=== PATIENT | female | born 1930 | race Caucasian/White ===

== ENCOUNTER → 2016-12-19 08:32 | Outpatient (CLI) | payer MEDICARE, OTHER | END | disposition home or self-care (01) | LOC: D.MRI 12-15 10:30 | DX: M54.2 Cervicalgia (principal) ==

== ENCOUNTER → 2018-03-05 09:58 | Outpatient (CLI) | payer MEDICARE, OTHER | END | disposition home or self-care (01) | LOC: D.CT 09:58 | DX: R79.1 Abnormal coagulation profile (principal) ==

== ENCOUNTER 2018-04-06 14:20 | Inpatient (IN) | payer MEDICARE, OTHER ==
[~2018-04-06] VITALS: Ht 157.5 cm; Wt 81.8 kg
--- NOTE | ~2018-04-06 | MORECARE ---
CASE MANAGEMENT DISCHARGE SUMMARY PATIENT: GRIFFIN BEGUM UNIT: [id number] ADM DATE: 04/06/18 AGE: 87 : 30 SEX: F ROOM/BED: D.2239 AUTHOR: ESAU GAN PHYSICIAN: REFERRING PHYSICIAN: SANJEEV PHILLIPS DO DATE OF SERVICE: 04/09/18 Discharge Plan Patient Name: GRIFFIN BEGUM Facility: [facility]:[place] : 1930 Planned Disposition: Home Anticipated Discharge Date: Discharge Date: Expected LOS: Initial Reviewer: [email or web address] Initial Review Date: 04/09/2018 Generated: 04/09/18 12:06 pm Comments DCP- Discharge Planning Updated by [email or web address]: Penny Byrd on 04/09/18 9:[address] Patient Name: GRIFFIN BEGUM Admission Status: ER Accout number: [id number] Admission Date: 04-06-2018 : 1930 Admission Diagnosis:PNEUMONIA, UNSPECIFIED ORGANISM Attending: SANJEEV PHILLIPS Current LOS: 3 Anticipated DC Date: Planned Disposition: Home Primary Insurance: MEDICARE A & B Discharge Planning Comments: CM met with patient and her to discuss discharge planning. She and her live in [facility] She uses a cane for ambulation, otherwise is independent with ADL's. She no longer drives, her drives her where she needs to go. She states that [facility] prepares their meals and cleans the house weekly. She states she does have a emergency bracelet that rings the front desk coordinator when help is needed. She has a golf cart that she drives to the main building for her meals. She believes her oxygen supplier is [employer], she only uses it PRN. I discussed availability of rehab, SNF, home health and additional DME. At this time, she declines needs. States she is unsure if she will need anything at this time. CM will continue to follow and assist with discharge planning/needs. Financial Cost Analyst: Penny Byrd DCPIA - Discharge Planning Initial Assessment Updated by [email or web address]: Penny Byrd on 04/09/18 10:53 am * Is the patient Alert and Oriented? Yes * How many steps to enter\exit or inside your home? 0/0 * PCP Dr. Phillips * Pharmacy [facility] * Preadmission Environment Home with Family * ADLs Partial Dependent * Partial ADLs (Assistance needed) Ambulation * Equipment Cane Grab Bars Other Oxygen Rolling Walker * Other Equipment Emergency Bracelet Portable oxygen * List name and contact numbers for known caregivers / representatives who currently or will assist patient after discharge: Gregory banda - [phone] Aren rojo - [phone] * Verbal permission to speak to the caregivers and representatives has been obtained from the patient. Yes * Community resources currently utilized None * Additional services required to return to the preadmission environment? No * Can the patient safely return to the preadmission environment? Yes * Has this patient been hospitalized within the prior 30 days at any hospital? 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
--- NOTE | ~2018-04-06 | HEMODYNAMI ---
PATIENT:GRIFFIN BEGUM MEDICAL RECORD: [id number] : 30 [facility] [id number] ADMISSION DATE: 04/06/18 Generatedon:04/11/201812:42 Patient name: GRIFFIN BEGUM Patient #: [id number] SSN : : 1930 Date of study: 04/11/2018 Page: Of Hemodynamic Procedure Report Patient Data Patient Demographics Procedure consent was obtained First Name: GRIFFIN Gender: Female Last Name: SHY : 1930 [facility] Initial: P Age: 87 year(s) Patient #: [id number] Race: Unknown Additional ID: [id number] Contact details Address: [address] [place] [address] State: [place] City: [facility] Zip code: [address] Past Medical History Allergies: No known allergies Admission Admission Data Admission Date: 04/06/2018 Admission Time: 17:19 Room #: [facility] Procedure Procedure Types Cath Procedure Diagnostic Procedure LHC LHC w/Coronaries w/Grafts FFR/IVUS Intra-Coronary IVUS Initial Sedation Charges Moderate Sedation up to 30 minutes PCI Procedure Coronary Stent Coronary Stent Initial AMI/SVG/PRE KINDERGARTEN TEACHER PTCA or Stent SVG-BMS/DESIREE Initial Peripheral Cath Diagnostic Procedure Direct Of Real Estate Peripheral Procedures Ubulf-Rnfvsak-Ead-Off Procedure Description Procedure Date Procedure Date: 04/11/2018 Procedure Start Time: 12:05 Procedure End Time: 12:39 Procedure Staff Name Function Adeola Jolly RT Monitor Cuate Car RN Slitting Machine Feeder Waldemar Gil MD Performing Physician Lakshmi Hernandez RT Scrub Mami Painting RN Nurse Procedure Data Cath Procedure Fluoroscopy Diagnostic fluoroscopy Total fluoroscopy Time: 0 time: 0 min min Diagnostic fluoroscopy Total fluoroscopy dose: 9.8 dose: 9.8 mGy mGy Contrast Material Contrast Material Type Amount (ml) Isovue 300 190 Entry Location Entry Primary Successful Side Size Upsize Upsize Entry Closure Succes sful Closure Location (Fr) 1 (Fr) 2 (Fr) Remarks Device Remarks Femoral Right 5 Fr 6 Fr 7 Fr Exoseal artery Short Short Estimated blood loss: 10 ml Diagnostic catheters Device Type Used For End Catheter Placement MULTIPACK 3DRC 5Fr Internal mammary catheter arteriography MULTIPACK 3DRC 5Fr Right Coronary catheter Angiography MULTIPACK 3DRC 5Fr SVG Angiography catheter MULTIPACK Pigtail 5 Fr LV Angiography catheter MULTIPACK Pigtail 5 Fr Abdominal catheter aortogram with runoff MULTIPACK JL 4.0 5Fr Left Coronary catheter Angiography DIAGNOSTIC AR2 MOD 5 Fr SVG Angiography catheter ([id number]) DIAGNOSTIC AR2 MOD 5 Fr SVG Angiography catheter ([id number]) Procedure Complications No complications Procedure Medications Medication Administration Route Dosage 0.9% NaCl I.V. 100 ml/hr Oxygen etCO2 Nasal cannula 2 l/min Lidocaine 2% added to field 20 Heparin Flush Bag added to field 2 bags (1000units/500ml NS) Versed I.V. 2 mg Fentanyl I.V. 50 mcg Versed I.V. 1 mg Heparin Bolus I.V. 4000 units Integrilin (Bolus I.V. 7.3 ml 2mg/ml) Versed I.V. 1 mg Fentanyl I.V. 50 mcg Plavix P.O. 600 mg Hemodynamics Rest Heart Rate: 95 (bpm) Snapshots Pre Cath Intra NCS Post Cath Vital Signs Time Heart Resp SPO2 etCO2 NIBP (mmHg) Rhythm Pain Sedation Rate (ipm) (%) (mmHg) Status Level (bpm) 11:51:47 96 24 100 27.5 145/84(114) NSR 0 (11) 10(A) , No pain 11:56:15 99 29 100 24.5 147/92(111) NSR 0 (11) 10(A) , No pain 12:00:46 94 27 100 27.5 148/84(116) NSR 0 (11) 10(A) , No pain 12:05:16 90 25 100 24.5 135/77(110) NSR 0 (11) 10(A) , No pain 12:09:43 88 23 99 26.8 123/73(106) NSR 0 (11) 10(A) , No pain 12:14:05 90 24 100 28.2 126/71(96) NSR 0 (11) 10(A) , No pain 12:18:27 93 23 100 29 128/77(110) NSR 0 (11) 10(A) , No pain 12:22:51 90 24 100 28.2 125/71(97) NSR 0 (11) 10(A) , No pain 12:27:13 86 19 100 26 123/69(96) NSR 0 (11) 9(A) , No pain 12:31:37 83 19 100 29.7 126/68(95) NSR 0 (11) 9(A) , No pain 12:36:00 88 25 100 19.3 129/77(100) NSR 0 (11) 9(A) , No pain Medications Time Medication Route Dose Verified Delivered Reason Notes Effectiveness by by 12:06:54 0.9% NaCl I.V. 100 Waldemar Mami used for ml/hr Louise Painting batch trucker 12:07:01 Oxygen etCO2 2 Waldemar Mami for local Nasal l/min Louise Painting anesthetic cannula RN 12:07:07 Lidocaine 2% added 20ml Waldemar Obregonrey for local to vial Louise Gil MD anesthetic field 12:07:12 Heparin Flush added 2 Waldemar Waldemar used for Bag to bags Louise Gil MD procedure (1000units/500ml field NS) 12:07:24 Versed I.V. 2 mg Waldemar Mami for sedation Louise Painting RN 12:07:32 Fentanyl I.V. 50 Waldemar Mami for sedation mcg Louise Painting RN 12:17:24 Versed I.V. 1 mg Waldemar Mami for sedation Louise Painting RN 12:19:29 Heparin Bolus I.V. 4000 Waldemar Mami for verif ied units Louise Painting anticoagulation with Dr. PATRICIO [facility] 12:21:08 Integrilin I.V. 7.3 Waldemar Mami for waste d (Bolus 2mg/ml) ml Louise Painting anticoagulation 2.7mL RN 12:24:37 Versed I.V. 1 mg Waldemar Mami for sedation Louise Painting RN 12:24:41 Fentanyl I.V. 50 Waldemar Mami for sedation mcg Louise Painting RN 12:34:08 Plavix P.O. 600 Waldemar Mami for mg Louise Painting antiplatelet RN therapy Procedure Log Time Note 11:24:38 Time tracking: Regular hours (M-F 7:00 - 5:00) 11:24:43 Plan of Care:Hemodynamics will remain stable., Cardiac rhythm will remain stable., Comfort level will be maintained., Respiratory function will remain adequate., Patient/ family verbilizes understanding of procedure., Procedure tolerated without complication., Recovers from procedure without complications.. 11:27:26 Adeola Counts RT(R) sent for patient. Start room use. 11:41:21 Patient received from Med/Surg to CCL 1 Alert and oriented. Tansferred to table in Supine position. 11:41:22 Warm blankets applied, and wally hugger turned on for patient comfort. 11:41:23 Correct patient and procedure confirmed by team. 11:41:25 Signed procedure consent form obtained from patient. 11:41:27 ECG and BP/O2 sat monitors applied to patient. 11:50:27 Vital chart was started 11:50:28 Full Disclosure recording started 11:50:30 Rhythm: sinus rhythm 11:50:37 H&P Date Dictated: 04/10/2018 Within 30 days and on chart.. 11:50:39 Pre-op teaching completed and patient verbalized understanding. 11:50:39 Pre-procedure instructions explained to patient. 11:50:41 Family unavailable. 11:50:43 Patient NPO since Midnight. 11:50:44 IV LEFT FOREARM NOT FLUSHING , CLOTTED LINE. IV D/C'D. 11:50:50 Patient allergic to No known allergies 11:51:09 Is the patient allergic to Iodine/contrast media? No. 11:51:11 Is patient on blood thinner?No 11:51:13 Patient diabetic? No. 11:51:16 Previous problem with sedation/anesthesia? No ? 11:51:17 Snore? Yes 11:51:18 Sleep apnea? No 11:51:19 Deviated septum? No 11:51:20 Sticks out tongue? Yes 11:51:20 Opens mouth fully? Yes 11:51:22 Airway obstruction? No ? 11:51:43 Dentures? Yes Tops in Botoms out 11:51:45 Pre procedure: right dorsailis pedis pulse 1+ Palpable, but thready & weak; easily obliterated 11:51:47 Patient pain scale 0/10 ?. 11:51:55 Lab results completed and on chart. 11:51:58 Alarms reviewed by R. N. 11:51:58 Right groin area was prepped with chlora-prep and draped in sterile fashion 11:51:59 Sharps counted by scrub and verified by R.N. 11:52:00 Final Timeout: patient, procedure, and site verified with staff and physician. All members of the team are in agreement. 11:52:01 Right groin site verified by team. 11:52:03 Physical assessment completed. ASA score P 2 - A patient with mild systemic disease as per Waldemar Gil MD. 11:52:06 Sedation plan: IV Moderate Sedation Medication:Versed, Fentanyl 11:52:10 Use device set Femoral Dx 11:52:11 ACIST Syringe (07611) opened to sterile field. 11:52:12 Medline Cath Pack ([id number]) opened to sterile field. 11:52:12 Bag Decanter (2002S) opened to sterile field. 11:52:13 DIAGNOSTIC WIRE .035 260cm J wire (336201) opened to sterile field. 11:52:14 DIAGNOSTIC Multipack 5Fr catheter set (FO8330) opened to sterile field. 11:52:14 ACIST Manifold (09194) opened to sterile field. 11:52:14 ACIST Hand Control (00894) opened to sterile field. 11:52:15 Tegaderm 4 x 4 (1626W) opened to sterile field. 11:52:16 SHEATH 5FR Ambler (NOF626) opened to sterile field. 11:56:53 Procedure type changed to Cath procedure, Diagnostic procedure, LHC, LHC w/Coronaries w/Grafts, FFR/IVUS, Intra-Coronary IVUS Initial, Sedation Charges, Moderate Sedation up to 30 minutes, PCI procedure, Coronary Stent, Coronary Stent Initial, AMI/SVG/PRE KINDERGARTEN TEACHER PTCA or Stent, SVG-BMS/DESIREE Initial, Peripheral Cath Diagnostic Procedure, Direct Of Real Estate Peripheral Procedures, Qvnuz-Gmtgvow-Dug-Off 11:57:58 Baseline sample Acquired. 12:00:39 IV started by Cuate Car RN inleft forearm with a 22 gauge IV catheter with 0.9% NaCl at KVO. 12:00:46 IV CATHETER 22g opened to sterile field. 12:01:55 Zero performed for pressure channel P1 12:05:33 Procedure started. 12:05:36 Local anesthetic to right femoral artery with Lidocaine 2% by Waldemar Gil MD.INITIAL ACCESS ONLY 12:06:07 A 5 Fr sheath was inserted into the Right Femoral artery 12:06:54 0.9% NaCl 100 ml/hr I.V. was administered by Mami Painting RN; used for procedure; 12:07:01 Oxygen 2 l/min etCO2 Nasal cannula was administered by Mami Painting RN; for local anesthetic; 12:07:07 Lidocaine 2% 20ml vial added to field was administered by Waldemar Gil MD; for local anesthetic; 12:07:12 Heparin Flush Bag (1000units/500ml NS) 2 bags added to field was administered by Waldemar Gil MD; used for procedure; 12:07:15 A MULTIPACK 3DRC 5Fr catheter was advanced over the wire and used for Internal mammary arteriography. NOT GRAFTED 12:07:24 Versed 2 mg I.V. was administered by Mami Painting RN; for sedation; 12:07:32 Fentanyl 50 mcg I.V. was administered by Mami Painting RN; for sedation; 12:08:16 GLIDE WIRE Super Stiff Angled 260cm (WW6178) opened to sterile field. 12:08:33 SS GLIDE wire advanced. 12:10:00 A MULTIPACK 3DRC 5Fr catheter was advanced over the wire and used for Right Coronary Angiography. 12:10:20 A MULTIPACK 3DRC 5Fr catheter was advanced over the wire and used for SVG Angiography. TO LAD 12:10:35 Catheter removed. 12:10:51 Use device set TAUTH PCI 12:10:53 SHEATH 6FR Ambler (NCX470) opened to sterile field. 12:10:56 INFLATOR Merit BasixCompak (PF0748) opened to sterile field. 12:10:59 CHOICE PT Extra Support 182cm wire ([id number]) opened to sterile field. 12:11:12 A MULTIPACK Pigtail 5 Fr catheter was advanced over the wire and used for LV Angiography. 12:11:17 LV gram done using STOKES 12:11:22 Injector settings: Ml/sec: 10, Volume: 20, 12:11:42 EF : 55 % 12:12:12 A MULTIPACK Pigtail 5 Fr catheter was advanced over the wire and used for Abdominal aortogram with runoff. 12:12:35 Catheter removed. 12:13:41 A MULTIPACK JL 4.0 5Fr catheter was advanced over the wire and used for Left Coronary Angiography. 12:14:41 Catheter removed. 12:16:17 A DIAGNOSTIC AR2 MOD 5 Fr catheter (561623M) was advanced over the wire and used for SVG Angiography. TO CX OCCLUDED 12:16:34 A DIAGNOSTIC AR2 MOD 5 Fr catheter ([id number]) was advanced over the wire and used for SVG Angiography.TO RCA 12:17:24 Versed 1 mg I.V. was administered by Mami Painting RN; for sedation; 12:17:56 Catheter removed. 12:18:16 GUIDE 6FR AR 2.0 catheter (PM9RK64) opened to sterile field. 12:18:59 [place] IVUS Catheter (92080U) opened to sterile field. 12:19:06 Sheath upsized to a 6 Fr Short. 12:19:29 Heparin Bolus 4000 units I.V. was administered by Mami Painting RN; for anticoagulation; verified with Dr. Gil 12:19:57 6 Fr AR 2.0 guide catheter was inserted over the wire 12:20:22 GUIDE 6FR XB 3.5 catheter ([id number]) opened to sterile field. 12:20:37 CHOICE PT ES wire advanced. 12:21:08 Integrilin (Bolus 2mg/ml) 7.3 ml I.V. was administered by Mami Painting RN; for anticoagulation; wasted 2.7mL 12:22:15 The INTEGRITY RX 3.5 x 18 stent ([id number]) was advanced then removed because of failure to cross lesion 12:22:27 Wire removed. 12:22:38 Guide Catheter removed. unable to get back-up support 12:23:12 GUIDE 7FR AR 2.0 catheter (RI7BR25) opened to sterile field. 12:23:13 SHEATH 7FR Ambler (YIX403) opened to sterile field. 12:23:18 WHISPER 190cm wire ([id number]) opened to sterile field. 12:23:27 Sheath upsized to a 7 Fr Short. 12:24:32 7 Fr AR 2.0 guide catheter was inserted over the wire 12:24:37 Versed 1 mg I.V. was administered by Mami Painting RN; for sedation; 12:24:41 Fentanyl 50 mcg I.V. was administered by Mami Painting RN; for sedation; 12:25:05 WHISPER wire advanced. 12:26:13 Place stent Inflation Number: 1 A INTEGRITY RX 3.5 x 18 stent ([id number]) was prepped and advanced across the Aorta Left -> Prox LAD. The stent was deployed at 21 KIMBERLY for 0:11 (min:sec). 12:26:23 EXOSEAL 7Fr (EX700) opened to sterile field. 12:26:32 Stent catheter was removed intact over wire. 12:26:33 Wire removed. 12:26:34 Guide catheter removed. 12:27:02 6 Fr XB 3.5 guide catheter was inserted over the wire 12:28:26 WHISPER wire advanced. 12:28:48 IVUS catheter advanced over wire. 12:29:03 IVUS pass to Circ lesion performed. 12:30:04 IVUS catheter removed over wire. 12:31:31 Wire removed. 12:31:37 CHOICE PT ES wire advanced. 12:32:34 Place stent Inflation Number: 1 A INTEGRITY RX 3.5 x 12 stent ([id number]) was prepped and advanced across the Mid CX. The stent was deployed at 13 KIMBERLY for 0:06 (min:sec). 12:32:53 Stent catheter was removed intact over wire. 12:32:54 Guide catheter removed. 12:32:54 Wire removed. 12:33:03 Sheath removed intact; hemostasis achieved with Exoseal to the Right Femoral artery. 12:33:05 Procedure ended.(Physican Out) 12:33:35 Fluoroscopy time 00.00 minutes. 12:33:39 Fluoroscopy dose: 9.8 mGy 12:33:39 Flurop Dose total: 9.8 12:33:43 Contrast amount:Isovue 300 190ml. 12:33:45 Sharps counted by scrub and verified by R.N. 12:33:46 Insertion/operative site no bleeding no hematoma. 12:33:49 Post-op/insertion site Right Femoral artery dressed using a 4 x 4 and Tegaderm. 12:33:52 Post right femoral artery:stable, clean and dry 12:33:53 Post Procedure Pulses reassessed and unchanged 12:33:55 Post-procedure physical assessment completed. ASA score P 2 - A patient with mild systemic disease as per Waldemar Gil MD. 12:33:58 Post procedure rhythm: unchanged. 12:34:08 Plavix 600 mg P.O. was administered by Mami Painting RN; for antiplatelet therapy; 12:34:09 Estimated blood loss: 10 ml 12:34:10 Post procedure instruction explained to patient.Patient verbalizes understanding. 12:34:11 Patient needs reinforcement of post procedure teaching. 12:37:12 Procedure Complication : No complications 12:37:19 See physician's report for complete and final results. 12:38:30 TORQUE DEVICE PLASTIC .038 ( TD01) opened to sterile field. 12:39:23 Procedure and supply charges have been captured, reviewed, submitted and are correct. 12:39:26 Vital chart was stopped 12:39:27 Report given to Pre/Post Procedure Room. 12:39:31 Patient transfered to Pre/Post Procedure Room with Bed. 12:39:34 Full Disclosure recording stopped 12:39:34 Procedure ended. 12:39:38 End room use (Document Last) Intervention Summary Intervention Notes Time ActionType Lesion and Equipment Action# Pressure Duration Attributes Used 12:22:15 Discard INTEGRITY RX Stent 3.5 x 18 stent ([id number]) 12:26:13 Place stent Aorta Left INTEGRITY RX 1 21 00:11 -> Prox LAD 3.5 x 18 stent ([id number]) 12:32:34 Place stent Mid CX INTEGRITY RX 1 13 00:06 3.5 x 12 stent ([id number]) Device Usage Item Name Manufacture Quantity Catalog Number Hospital Part Current [facility] Lot# / Charge Number Stock Stock Serial# Code ACIST Acist 1 23973 385991 302717 759459 20 Syringe [employer]Are.TV (63117) Systems Inc Bag Decanter Microtek 1 342714 63590 531463 5 () Medical Inc. Medline Cath Medline 1 [id number] 577093 41790 017813 5 Pack ([id number]) DIAGNOSTIC St Nael 1 694287 259272 645892 008948 30 WIRE .035 260cm J wire (493327) ACIST Hand Acist 1 78328 122661 868647 552238 5 Control Medical (56704) Systems Inc ACIST Acist 1 95993 229619 727111 337148 5 [employer]plex Inc. [facility] (81245) Systems Inc DIAGNOSTIC Cardinal 1 HV6951 917812 92796 047487 30 Multipack Health 5Fr catheter set (OR9943) Tegaderm 4 x 3M 1 1626W 930197 994460 735148 5 4 (1626W) SHEATH 5FR Terumo 1 YHT062 448592 643467 774433 40 Ambler ([id number]) IV CATHETER B. Rangel 1 9017350-72 606886 582740 417211 5 22g MULTIPACK Cardinal 1 173065 5 3DRC 5Fr Health catheter GLIDE WIRE Terumo 1 SI2212 878785 719146 542445 5 Super Stiff Angled 260cm (QB8430) SHEATH 6FR Terumo 1 XSE370 823672 594790 160502 40 Ambler (EIZ749) INFLATOR [facility] 1 PO4759 099825 477326 454753 15 [facility] BasixCompak (CL9512) CHOICE PT [place] 1 [id number] 887079 435953 808196 5 Extra Scientific Support 182cm wire ([id number]) MULTIPACK Cardinal 1 613339 5 Pigtail 5 Fr Health catheter MULTIPACK JL Cardinal 1 724284 5 4.0 5Fr Health catheter DIAGNOSTIC Cardinal 1 269917C 400878 740998 229679 20 AR2 MOD 5 Fr Health catheter (024014C) GUIDE 6FR AR Medtronic 1 PR2SL11 855148 45512 488159 1 2.0 catheter (EH7FO04) Slocomb Slocomb 1 12016A 629303 563185 865513 8 [place] IVUS Catheter (91368C) GUIDE 6FR XB Cardinal 1 [id number] 813096 095460 784496 2 3.5 catheter Health (55437533) INTEGRITY RX Medtronic 1 [id number] 603298 509205 358458 5 [id number] 3.5 x 18 stent ([id number]) GUIDE 7FR AR Medtronic 1 ME5ST12 773642 754007 355368 0 2.0 catheter (QD6RA09) SHEATH 7FR Terumo 1 NUE552 886049 651123 424878 5 Ambler (MMN802) WHISPER Erazo 1 [id number] 625427 688085 004245 5 190cm wire Vascular (0983529BS) EXOSEAL 7Fr Cardinal 1 EX700 024303 261734 036025 5 (EX700) Health INTEGRITY RX Medtronic 1 [id number] 585999 648255 132368 5 [id number] 3.5 x 12 stent ([id number]) TORQUE [place] 1 TD01 526955 615767 634369 5 DEVICE Scientific PLASTIC .038 ( TD01) Signature Audit [place] Stage Time Signature Unsigned Intra-Procedure 04/11/2018 Adeola Mir Counts 12:39:54 PM Counts RT(R) RT(R) 04/11/2018 12:40:52 PM Intra-Procedure 04/11/2018 Adeola 12:42:50 PM Counts RT(R) Signatures Monitor : Adeola Signature : Counts RT Date : Time : [place] [id number] [place] [address]
--- NOTE | ~2018-04-06 | MORECARE ---
CASE MANAGEMENT DISCHARGE SUMMARY PATIENT: GRIFFIN BEGUM UNIT: [id number] ADM DATE: 04/06/18 AGE: 87 : 30 SEX: F ROOM/BED: D.2239 AUTHOR: ESAU GAN PHYSICIAN: REFERRING PHYSICIAN: SANJEEV PHILLIPS DO DATE OF SERVICE: 04/09/18 Discharge Plan Patient Name: GRIFFIN BEGUM Facility: [facility]:[place] : 1930 Planned Disposition: Home Anticipated Discharge Date: Discharge Date: Expected LOS: Initial Reviewer: [email or web address] Initial Review Date: 04/09/2018 Generated: 04/09/18 11:33 am Patient Name: GRIFFIN BEGUM Page 03777 at 1033 All edits/amendments must be made on the electronic document DICTATION DATE: 04/09/18 1033 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
--- NOTE | ~2018-04-06 | EC ---
PATIENT:GRIFFIN BEGUM DATE OF SERVICE: 04/06/18 SEX: F MEDICAL RECORD: [id number] DATE OF : [birth year] LOCATION:D[facility] [place] AGE OF PATIENT: 87 ADMISSION DATE: 04/06/18 REFERRING PHYSICIAN: INTERPRETING PHYSICIAN: BERNARD LEROY MD ECHOCARDIOGRAM REPORT ECHO CHARGES 4 ECHO COMPLETE Date: 04/07/18 CLINICAL DIAGNOSIS: ELEVATED TROPONIN ECHOCARDIOGRAPHIC MEASUREMENTS (adult normal given) AC root (d.<3.7cm) 3.5 cm LV Septum d (<1.2 cm> 1.6 cm Valve Excursion 1.5 cm LV Septum (systole) 1.4 cm Left Atria (s.<4.0cm> 4.3 cm LVPW d(<1.2cm) 1.5 cm RV (d.<2.3cm) 3.3 cm LVPW (sytole) 1.8 cm LV diastole(<5.6CM) 4.4 cm MV E-F(>70mm/sec) cm LV systole 3.2 cm LVOT Diameter 1.6 cm MV exc.(>10mm) 1.4 cm Est.ejection fraction (50-75%) % DOPPLER: LVIT cm/sec A 92.0 cm/sec E 86.0 cm/sec LA cm/sec RVSP 60 mmHg LVOT 105 cm/sec AOP1/2T m/s Asc. Ao 158 cm/sec RVOT 71 cm/sec RA cm/sec PA 110 cm/sec AV Gradient Peak 9.95 mmHg AV Mean 4.48 mmHg AV Area 1.2 cm MV Gradient Peak 4.59 mmHg MV Mean 1.67 mmHg MV Area cm COMMENTS: Integrity Consultant: 2 LIAN TORRES Barrel Inspector: 4 Dr. Leroy TAPE# PACS Pericardial Effusion N DATE OF SERVICE: PROCEDURE: Transthoracic echocardiogram. FINDINGS: 1. The left ventricle shows moderate concentric left ventricular hypertrophy. The ejection fraction is 60%. There is diastolic dysfunction. There are no regional wall motion abnormalities. 2. The right ventricle is normal in size, shape, structure, and function. 3. The left atrium is mildly dilated. ECHOCARDIOGRAM REPORT [id number] GRIFFIN BEGUM 4. The mitral valve has mild mitral regurgitation. 5. The aortic valve is normal. 6. The tricuspid valve has moderate tricuspid regurgitation. The right ventricular systolic pressures appear to be elevated at 60 mmHg. 7. The pericardium is normal. CONCLUSION: The patient has evidence of hypertensive heart disease as well as inflow characteristics consistent with diastolic dysfunction and associated pulmonary hypertension. TRANSINT:[id number] Voice Confirmation ID: [id number] DOCUMENT ID: [id number] BERNARD LEROY MD CC: [id number] DICTATION DATE: 04/08/18 1032 BOOTH CASHIER: 04/08/18 1102 ADM IN [facility] [address] [place] [address]
--- NOTE | ~2018-04-06 | MORECARE ---
CASE MANAGEMENT DISCHARGE SUMMARY PATIENT: GRIFFIN BEGUM UNIT: [id number] ADM DATE: 04/06/18 AGE: 87 : 30 SEX: F ROOM/BED: D.3186 AUTHOR: ESAU GAN PHYSICIAN: REFERRING PHYSICIAN: SANJEEV PHILLIPS DO DATE OF SERVICE: 04/15/18 Discharge Plan Patient Name: GRIFFIN BEGUM Facility: [facility]:[place] : 1930 Planned Disposition: Home Anticipated Discharge Date: 04/14/18 Discharge Date: 04/14/2018 Expected LOS: 8 Initial Reviewer: [email or web address] Initial Review Date: 04/09/2018 Generated: 04/15/18 10:54 am Comments DCP- Discharge Planning Updated by [email or web address]: Penny Byrd on 04/09/18 9:[address] Patient Name: GRIFFIN BEGUM Admission Status: ER Accout number: [id number] Admission Date: 04-06-2018 : 1930 Admission Diagnosis:PNEUMONIA, UNSPECIFIED ORGANISM Attending: SANJEEV PHILLIPS Current LOS: 3 Anticipated DC Date: Planned Disposition: Home Primary Insurance: MEDICARE A & B Discharge Planning Comments: CM met with patient and her to discuss discharge planning. She and her live in [facility]. She uses a cane for ambulation, otherwise is independent with ADL's. She no longer drives, her drives her where she needs to go. She states that [facility] prepares their meals and cleans the house weekly. She states she does have a emergency bracelet that rings the motel front desk attendant when help is needed. She has a golf cart that she drives to the main building for her meals. She believes her oxygen supplier is [employer], she only uses it PRN. I discussed availability of rehab, SNF, home health and additional DME. At this time, she declines needs. States she is unsure if she will need anything at this time. CM will continue to follow and assist with discharge planning/needs. Recreation Therapy Teacher: Penny Byrd DCPIA - Discharge Planning Initial Assessment Updated by [email or web address]: Penny Byrd on 04/09/18 10:53 am * Is the patient Alert and Oriented? Yes * How many steps to enter\exit or inside your home? 0/0 * PCP Dr. Phillips * Pharmacy [facility] [place] * Preadmission Environment Home with Family * ADLs Partial Dependent * Partial ADLs (Assistance needed) Ambulation * Equipment Cane Grab Bars Other Oxygen Rolling Walker * Other Equipment Emergency Bracelet Portable oxygen * List name and contact numbers for known caregivers / representatives who currently or will assist patient after discharge: Gregory Cao spouse - [phone] Aren Cao son - [phone] * Verbal permission to speak to the caregivers and representatives has been obtained from the patient. Yes * Community resources currently utilized None * Additional services required to return to the preadmission environment? No * Can the patient safely return to the preadmission environment? Yes * Has this patient been hospitalized within the prior 30 days at any hospital? No Last DP export: 04/09/18 10:06 Patient Name: GRIFFIN BEGUM Page [id number] at 0954 All edits/amendments must be made on the electronic document DICTATION DATE: 04/15/18952 BYPRODUCTS PUMP OPERATOR: DEBO 04/15/18952 RPT#: [id number] DC DATE:04/14/18 STATUS: DIS IN [facility] [address] [place] [address] END OF REPORT
--- NOTE | ~2018-04-06 | OP ---
PATIENT NAME: GRIFFIN BEGUM MEDICAL RECORD: [id number] :30 LOCATION:D.M2 D.2116 ADMISSION DATE:04/06/18 SURGEON: PINA CURRY MD DATE OF OPERATION: 04/11/2018 DATE OF SERVICE: 04/11/2018 PROCEDURES: 1. PTCA stent vein graft to LAD. 2. PTCA stent left circumflex. 3. Intravascular ultrasound of left circumflex. 4. Left heart catheterization. 5. Selective coronary angiography. 6. Vein graft angiography. 7. FREITAS angiography. 8. Left ventriculogram. INDICATION: Angina, non-Q-wave myocardial infarction and coronary artery disease. DESCRIPTION OF PROCEDURE: After informed consent was obtained and after detailed description of risks, benefits as well as alternative therapies, the patient elected to proceed with angiogram and angioplasty. The right femoral area was prepped and draped in normal sterile fashion. Right femoral artery was cannulated via modified Seldinger technique with placement of 7-Swedish sheath. All catheters exchanged through this sheath. FINDINGS: Left ventriculogram was performed in standard 30-degree STOKES view, reveals preserved cardiac wall motion, ejection fraction 50%. SELECTIVE CORONARY ANGIOGRAPHY: 1. Left main is with no significant angiographic disease. 2. Left anterior descending is totally occluded. 3. FREITAS is nongrafted. 4. Vein graft to the LAD is patent. The distal LAD is diffusely diseased. There is 75% stenosis in the proximal shaft of the vein graft. 5. The left circumflex has a greater than 80% stenosis in the mid vessel confirmed by intravascular ultrasound. 6. The right coronary is totally occluded. 7. Vein graft to the right coronary is widely patent. Distal right coronary is widely patent. PTCA STENT OF THE VEIN GRAFT TO THE LAD: Vein graft to the LAD was addressed with a 3.5 x 18 mm Integrity stent. PTCA STENT OF THE [place] CIRCUMFLEX: The nez perce circumflex was addressed with a 3.5 x 12 mm Integrity stent. Result was 0% residual. OVERALL IMPRESSION: Successful percutaneous transluminal coronary angioplasty stent of the vein graft to the left anterior descending as well as the nez perce left circumflex going from 70-80% initial stenosis to begin with to 0% residual stenosis. TRANSINT:[id number] Voice Confirmation ID: [id number] DOCUMENT ID: [id number] OPERATIVE REPORT [id number] GRIFFIN BEGUM, PINA HAAS at 1718 CC: [id number] DICTATION DATE: 04/11/18 1238 STEREOTYPER HELPER: 04/11/18 1252 ADM IN [place] [id number] [place] [id number]
--- NOTE | ~2018-04-06 | MORECARE ---
CASE MANAGEMENT DISCHARGE SUMMARY PATIENT: GRIFFIN BEGUM UNIT: [id number] ADM DATE: 04/06/18 AGE: 87 : 30 SEX: F ROOM/BED: D.2239 AUTHOR: ESAU GAN PHYSICIAN: REFERRING PHYSICIAN: SANJEEV PHILLIPS DO DATE OF SERVICE: 04/09/18 Discharge Plan Patient Name: GRIFFIN BEGUM Facility: [facility]:[place] : 1930 Planned Disposition: Home Anticipated Discharge Date: Discharge Date: Expected LOS: Initial Reviewer: [email or web address] Initial Review Date: 04/09/2018 Generated: 04/09/18 11:57 am DCPIA - Discharge Planning Initial Assessment Updated by [email or web address]: Penny Byrd on 04/09/18 10:53 am * Is the patient Alert and Oriented? Yes * How many steps to enter\exit or inside your home? 0/0 * PCP Dr. Phillips * Pharmacy [facility] * Preadmission Environment Home with Family * ADLs Partial Dependent * Partial ADLs (Assistance needed) Ambulation * Equipment Cane Grab Bars Other Oxygen Rolling Walker * Other Equipment Emergency Bracelet Portable oxygen * List name and contact numbers for known caregivers / representatives who currently or will assist patient after discharge: Gregory - spouse - [phone] Aren Cao son - [phone] * Verbal permission to speak to the caregivers and representatives has been obtained from the patient. Yes * Community resources currently utilized None * Additional services required to return to the preadmission environment? No * Can the patient safely return to the preadmission environment? Yes * Has this patient been hospitalized within the prior 30 days at any hospital? No Last DP export: 04/09/18 9:33 Patient Name: GRIFFIN BEGUM Page 80113 at 1057 All edits/amendments must be made on the electronic document DICTATION DATE: 04/09/18 1056 KISS MACHINE OPERATOR: DEBO 04/09/18 1056 RPT#: [id number] DC DATE: STATUS: ADM IN [place] [address] [place] [address] END OF REPORT
[2018-04-06] MEDS ORDERED: BAYER CHEWABLE81 MG PO (14:34)
[2018-04-06] MEDS ORDERED: BYSTOLIC2.5 MG PO (14:34)
[2018-04-06] MEDS ORDERED: LIPITOR20 MG PO (14:34)
[2018-04-06] MEDS ORDERED: XANAX0.5 MG PO (14:34)
[2018-04-06] MEDS ORDERED: SYNTHROID112 MCG PO (14:35)
[2018-04-06] MEDS ORDERED: OMEPRAZOLE20 M1 PO (14:35)
[2018-04-06] MEDS ORDERED: NIACIN100 MG PO (14:35)
[2018-04-06] MEDS ORDERED: KLOR-CON 1010 MEQ PO (14:35)
[2018-04-06] MEDS ORDERED: LASIX20 MG PO (14:36)
[2018-04-06] MEDS ORDERED: PAXIL CR25 MG PO (14:36)
[2018-04-06 15:14] LABS: HEMATOCRIT 38.7 % (36.0-48.0); HEMOGLOBIN 12.4 g/dL (12-16); MCH 28.1 pg (26.0-34.0); MCV 87.6 fL (80.0-100.0); MEAN PLATELET VOLUME 11.3 fL (7.4-10.4); PLATELET COUNT 173 10x3/uL (130-400); RBC 4.42 10x6/uL (4.00-5.40); RDW 13.5 % (11.5-14.5); WBC 27.5 10x3/uL (4.8-10.8)
[2018-04-06 15:28] LABS: ALBUMIN 3.4 g/dL (3.4-5.0); ANION GAP 13.2 mmol/L (8-16); BILIRUBIN - TOTAL 0.57 mg/dL (0.2-1.3); CALCIUM 8.6 mg/dL (8.5-10.1); CARBON DIOXIDE 30.6 mmol/L (21.0-32.0); CREATININE - SERUM 1.4 mg/dL (0.6-1.3); POTASSIUM - SERUM 4.8 mmol/L (3.5-5.1); PROTEIN - SERUM 6.6 g/dL (6.4-8.2)
[2018-04-06 15:49] LABS: HYPOCHROMASIA 2+; LYMPHOCYTES 5 % (15-50); MONOCYTES 2 % (2-11); NEUTROPHILS 81 % (40-80); PLATELET ESTIMATE NORMAL; PLATELET MORPHOLOGY NORMAL PLT MORPH
[2018-04-06 16:23] VITALS: BP 108/60
[2018-04-06 16:34] LABS: APPEARANCE CLEAR (CLEAR); BILIRUBIN NEGATIVE (NEGATIVE); COLOR YELLOW (YELLOW); GLUCOSE NEGATIVE (NEGATIVE); KETONE NEGATIVE (NEGATIVE); NITRITE NEGATIVE (NEGATIVE); PROTEIN NEGATIVE (NEGATIVE); SPECIFIC GRAVITY 1.015 (1.005-1.020); UROBILINOGEN NORMAL (NORMAL)
[2018-04-06 16:38] LABS: TROPONIN-I 1.435 ng/mL (0.000-0.060)
[2018-04-06 17:46] VITALS: BP 150/97
[2018-04-06 20:47] VITALS: BP 98/47
[2018-04-07 01:03] VITALS: BP 117/61
[2018-04-07 01:57] VITALS: BP 91/50; BMI 33.0
[2018-04-07 05:58] VITALS: BP 121/62
[2018-04-07 10:14] VITALS: Ht 157.5 cm; Wt 81.8 kg
[2018-04-07 11:20] LABS: BASOPHILS 0.1 % (0-2); EOSINOPHILS 0.3 % (0-7); HEMATOCRIT 39.3 % (36.0-48.0); HEMOGLOBIN 12.7 g/dL (12-16); IMMATURE GRANULOCYTES 0.2 % (0-5); LYMPHOCYTES 12.3 % (15-50); MCH 28.3 pg (26.0-34.0); MCHC 32.3 g/dL (31.0-37.0); MCV 87.5 fL (80.0-100.0); MEAN PLATELET VOLUME 11.3 fL (7.4-10.4); MONOCYTES 4.1 % (2-11); PLATELET COUNT 135 10x3/uL (130-400); RBC 4.49 10x6/uL (4.00-5.40); RDW 13.8 % (11.5-14.5); WBC 16.3 10x3/uL (4.8-10.8)
[2018-04-07 11:28] VITALS: BP 150/73
[2018-04-07 11:43] LABS: ANION GAP 12.8 mmol/L (8-16); CALCIUM 9.1 mg/dL (8.5-10.1); CREATININE - SERUM 1.1 mg/dL (0.6-1.3)
[2018-04-07 11:44] LABS: POTASSIUM - SERUM 3.8 mmol/L (3.5-5.1)
[2018-04-07 11:45] LABS: CKMB 3.6 U/L (0.0-3.6); CREATINE KINASE 120 UL (21-215)
[2018-04-07 16:38] VITALS: BP 160/77
[2018-04-07 17:42] LABS: CKMB 2.5 U/L (0.0-3.6); CREATINE KINASE 131 UL (21-215)
[2018-04-07 17:44] LABS: TROPONIN-I 1.221 ng/mL (0.000-0.060)
[2018-04-07 22:09] VITALS: BP 150/83
[2018-04-07 23:10] LABS: CKMB 1.5 U/L (0.0-3.6); CREATINE KINASE 102 UL (21-215)
[2018-04-07 23:11] LABS: TROPONIN-I 0.993 ng/mL (0.000-0.060)
[2018-04-08 01:51] VITALS: BP 120/87
[2018-04-08 04:11] LABS: BASOPHILS 0.1 % (0-2); EOSINOPHILS 0.3 % (0-7); HEMATOCRIT 36.6 % (36.0-48.0); HEMOGLOBIN 11.5 g/dL (12-16); IMMATURE GRANULOCYTES 0.4 % (0-5); LYMPHOCYTES 11.4 % (15-50); MCH 27.7 pg (26.0-34.0); MCHC 31.4 g/dL (31.0-37.0); MCV 88.2 fL (80.0-100.0); MEAN PLATELET VOLUME 11.3 fL (7.4-10.4); MONOCYTES 6.4 % (2-11); NEUTROPHILS 81.4 % (40-80); PLATELET COUNT 128 10x3/uL (130-400); RBC 4.15 10x6/uL (4.00-5.40); RDW 13.6 % (11.5-14.5); WBC 15.7 10x3/uL (4.8-10.8)
[2018-04-08 04:23] LABS: ALBUMIN 2.7 g/dL (3.4-5.0); ANION GAP 10.3 mmol/L (8-16); BILIRUBIN - TOTAL 0.78 mg/dL (0.2-1.3); CALCIUM 8.4 mg/dL (8.5-10.1); CARBON DIOXIDE 28.7 mmol/L (21.0-32.0); CREATININE - SERUM 0.9 mg/dL (0.6-1.3); MAGNESIUM - SERUM 1.7 mg/dL (1.8-2.4); PROTEIN - SERUM 6.8 g/dL (6.4-8.2)
[2018-04-08 05:31] VITALS: BP 127/61
[2018-04-08 08:14] VITALS: BP 129/84
[2018-04-08 13:14] VITALS: BP 111/68
[2018-04-08 17:50] VITALS: BP 117/70
[2018-04-08 21:04] VITALS: BP 126/66
[2018-04-09 04:29] VITALS: BP 105/55
[2018-04-09 05:22] LABS: BASOPHILS 0.2 % (0-2); EOSINOPHILS 1.6 % (0-7); HEMATOCRIT 34.6 % (36.0-48.0); HEMOGLOBIN 10.8 g/dL (12-16); IMMATURE GRANULOCYTES 0.3 % (0-5); LYMPHOCYTES 12.3 % (15-50); MCH 27.8 pg (26.0-34.0); MCHC 31.2 g/dL (31.0-37.0); MCV 88.9 fL (80.0-100.0); MEAN PLATELET VOLUME 11.8 fL (7.4-10.4); MONOCYTES 5.3 % (2-11); NEUTROPHILS 80.3 % (40-80); RBC 3.89 10x6/uL (4.00-5.40); RDW 13.9 % (11.5-14.5)
[2018-04-09 05:44] LABS: PLATELET COUNT 158 10x3/uL (130-400)
[2018-04-09 06:02] LABS: CALC OSMOLALITY 279 mosm/kg (275-300); CALCIUM 8.1 mg/dL (8.5-10.1); CARBON DIOXIDE 24.3 mmol/L (21.0-32.0); CHLORIDE - SERUM 104 mmol/L (98-107); CKMB 1.4 U/L (0.0-3.6); GLUCOSE 115 mg/dL (74-106); POTASSIUM - SERUM 4.1 mmol/L (3.5-5.1); SODIUM 140 mmol/L (136-145); UREA NITROGEN 13 mg/dL (7-18); eGFR NON AFRICAN AMERICAN 55 mL/min (90-120)
[2018-04-09 08:10] VITALS: BP 103/68
[2018-04-09 12:45] VITALS: BP 125/80
[2018-04-09 17:52] VITALS: BP 117/63
[2018-04-10 04:14] LABS: BASOPHILS 0.1 % (0-2); EOSINOPHILS 4.3 % (0-7); HEMATOCRIT 30.2 % (36.0-48.0); HEMOGLOBIN 9.8 g/dL (12-16); IMMATURE GRANULOCYTES 0.3 % (0-5); LYMPHOCYTES 14.9 % (15-50); MCH 28.2 pg (26.0-34.0); MCHC 32.5 g/dL (31.0-37.0); MEAN PLATELET VOLUME 11.3 fL (7.4-10.4); NEUTROPHILS 73.4 % (40-80); PLATELET COUNT 153 10x3/uL (130-400); RBC 3.47 10x6/uL (4.00-5.40); RDW 13.7 % (11.5-14.5); WBC 9.7 10x3/uL (4.8-10.8)
[2018-04-10 04:35] LABS: ANION GAP 9.9 mmol/L (8-16); CALCIUM 8.2 mg/dL (8.5-10.1); CREATININE - SERUM 0.8 mg/dL (0.6-1.3); POTASSIUM - SERUM 3.9 mmol/L (3.5-5.1)
[2018-04-10 05:52] VITALS: BP 133/71
[2018-04-10 08:35] VITALS: BP 146/84
[2018-04-10 13:22] VITALS: BP 102/64
[2018-04-10 15:56] VITALS: BP 103/65
[2018-04-10 22:38] VITALS: BP 126/70; BP 91/54
[2018-04-11 01:05] VITALS: BP 120/66
[2018-04-11 05:04] LABS: APTT 36.8 SECONDS (22.8-39.4); INR 1.18 (0.85-1.17); PROTIME 14.5 SECONDS (11.6-15.0)
[2018-04-11 05:26] LABS: ALBUMIN 2.2 g/dL (3.4-5.0); ANION GAP 8.9 mmol/L (8-16); BILIRUBIN - TOTAL 0.44 mg/dL (0.2-1.3); CARBON DIOXIDE 27.7 mmol/L (21.0-32.0); CREATININE - SERUM 0.9 mg/dL (0.6-1.3); POTASSIUM - SERUM 3.6 mmol/L (3.5-5.1); PROTEIN - SERUM 5.9 g/dL (6.4-8.2)
[2018-04-11 06:35] VITALS: BP 125/71
[2018-04-11 08:15] VITALS: BP 112/51
[2018-04-11 08:41] LABS: BASOPHILS 0.1 % (0-2); EOSINOPHILS 5.4 % (0-7); HEMATOCRIT 29.7 % (36.0-48.0); HEMOGLOBIN 9.4 g/dL (12-16); IMMATURE GRANULOCYTES 0.2 % (0-5); LYMPHOCYTES 15.1 % (15-50); MCH 27.5 pg (26.0-34.0); MCHC 31.6 g/dL (31.0-37.0); MCV 86.8 fL (80.0-100.0); MEAN PLATELET VOLUME 11.4 fL (7.4-10.4); MONOCYTES 8.4 % (2-11); NEUTROPHILS 70.8 % (40-80); PLATELET COUNT 161 10x3/uL (130-400); RBC 3.42 10x6/uL (4.00-5.40); RDW 13.7 % (11.5-14.5); WBC 8.1 10x3/uL (4.8-10.8)
[2018-04-11 16:28] VITALS: BP 124/60
[2018-04-11 19:45] VITALS: BP 135/69
[2018-04-11 23:45] VITALS: BP 113/59
[2018-04-12 03:55] VITALS: BP 119/66
[2018-04-12 05:04] LABS: BASOPHILS 0.2 % (0-2); EOSINOPHILS 5.2 % (0-7); HEMOGLOBIN 9.6 g/dL (12-16); IMMATURE GRANULOCYTES 0.2 % (0-5); LYMPHOCYTES 17.3 % (15-50); MCH 27.5 pg (26.0-34.0); MEAN PLATELET VOLUME 10.9 fL (7.4-10.4); MONOCYTES 7.8 % (2-11); NEUTROPHILS 69.3 % (40-80); PLATELET COUNT 174 10x3/uL (130-400); RBC 3.49 10x6/uL (4.00-5.40); RDW 13.6 % (11.5-14.5); WBC 8.8 10x3/uL (4.8-10.8)
[2018-04-12 06:06] LABS: ALBUMIN 2.4 g/dL (3.4-5.0); ANION GAP 13.3 mmol/L (8-16); BILIRUBIN - TOTAL 0.37 mg/dL (0.2-1.3); CALCIUM 8.2 mg/dL (8.5-10.1); CARBON DIOXIDE 25.5 mmol/L (21.0-32.0); CREATININE - SERUM 0.8 mg/dL (0.6-1.3); POTASSIUM - SERUM 3.8 mmol/L (3.5-5.1); PROTEIN - SERUM 5.9 g/dL (6.4-8.2)
[2018-04-12 08:09] VITALS: BP 128/73
[2018-04-12 12:58] VITALS: BP 133/65
[2018-04-12 17:41] VITALS: BP 126/72
[2018-04-12 20:00] VITALS: BP 118/59
[2018-04-13 04:00] VITALS: BP 138/75
[2018-04-13 09:10] LABS: BASOPHILS 0.1 % (0-2); EOSINOPHILS 4.6 % (0-7); HEMATOCRIT 31.2 % (36.0-48.0); IMMATURE GRANULOCYTES 0.3 % (0-5); LYMPHOCYTES 17.8 % (15-50); MCH 27.5 pg (26.0-34.0); MCHC 32.1 g/dL (31.0-37.0); MCV 85.7 fL (80.0-100.0); MONOCYTES 6.1 % (2-11); NEUTROPHILS 71.1 % (40-80); PLATELET COUNT 175 10x3/uL (130-400); RBC 3.64 10x6/uL (4.00-5.40); RDW 13.6 % (11.5-14.5); WBC 9.4 10x3/uL (4.8-10.8)
[2018-04-13 09:21] LABS: ANION GAP 13.4 mmol/L (8-16); CALCIUM 8.1 mg/dL (8.5-10.1); CARBON DIOXIDE 25.9 mmol/L (21.0-32.0); CREATININE - SERUM 0.8 mg/dL (0.6-1.3); POTASSIUM - SERUM 3.3 mmol/L (3.5-5.1)
[2018-04-13 09:56] VITALS: BP 119/55
[2018-04-13 16:17] VITALS: BP 146/71
[2018-04-13 20:30] VITALS: BP 127/63
[2018-04-14 04:30] VITALS: BP 141/71
[2018-04-14 09:33] VITALS: BP 131/64
[2018-04-14 12:58] VITALS: BP 140/79
[2018-04-14] MEDS ORDERED: PLAVIX75 MG PO (16:09)
[2018-04-14] MEDS ORDERED: BACTRIM DS1 TAB PO (16:10)
[2018-04-14 17:09] VITALS: BP 123/72
== END 2018-04-14 16:57 | disposition home or self-care (01) | DRG 981 ==
LOC: D.ER 14:20 → D.EDHOLD 17:19 → D.M2 17:19 → D.MS 17:19 → D.M2 04-11 14:19
PROVIDERS: Emergency Medicine; Family Medicine; Internal Medicine Interventional Cardiology
PROC: 02713EZ Dilation of Coronary Artery, Two Arteries with Two Intraluminal Devices, Percutaneous Approach (ICD-10-PCS; principal; 2018-04-11 11:27)
PROC: 4A023N7 Measurement of Cardiac Sampling and Pressure, Left Heart, Percutaneous Approach (ICD-10-PCS; 2018-04-11 11:27)
DX: J69.0 Pneumonitis due to inhalation of food and vomit (principal); I21.4 Non-ST elevation (NSTEMI) myocardial infarction; T82.858A Stenosis of other vascular prosthetic devices, implants and grafts, initial encounter; J44.1 Chronic obstructive pulmonary disease with (acute) exacerbation; I10 Essential (primary) hypertension; E03.9 Hypothyroidism, unspecified; K21.9 Gastro-esophageal reflux disease without esophagitis; J30.9 Allergic rhinitis, unspecified; I25.10 Atherosclerotic heart disease of native coronary artery without angina pectoris; E78.5 Hyperlipidemia, unspecified; M19.90 Unspecified osteoarthritis, unspecified site

== ENCOUNTER → 2018-11-28 09:30 | Outpatient (CLI) | payer MEDICARE, OTHER ==
[2018-04-07 10:14] VITALS: BMI 33.0
[~2018-11-28 09:30] MED LIST: BACTRIM DS1 TAB PO; BAYER CHEWABLE81 MG PO; BYSTOLIC2.5 MG PO; KLOR-CON 1010 MEQ PO; LASIX20 MG PO; LIPITOR20 MG PO; NIACIN100 MG PO; OMEPRAZOLE20 M1 PO; PAXIL CR25 MG PO; PLAVIX75 MG PO; SYNTHROID112 MCG PO; XANAX0.5 MG PO
== END | disposition home or self-care (01) ==
LOC: D.MAMMO 09:30
PROVIDERS: ATTEND Internal Medicine Medical Oncology
DX: C50.911 Malignant neoplasm of unspecified site of right female breast (principal); C50.811 Malignant neoplasm of overlapping sites of right female breast; C79.51 Secondary malignant neoplasm of bone

== ENCOUNTER → 2019-03-21 09:02 | Outpatient (CLI) | payer MEDICARE, OTHER ==
[2018-04-07 10:14] VITALS: BMI 33.0
== END | disposition home or self-care (01) ==
LOC: D.NM 03-14 09:00
PROVIDERS: ATTEND Internal Medicine Medical Oncology
DX: C50.911 Malignant neoplasm of unspecified site of right female breast (principal); C79.51 Secondary malignant neoplasm of bone; C50.811 Malignant neoplasm of overlapping sites of right female breast; D70.9 Neutropenia, unspecified; R50.9 Fever, unspecified; D70.1 Agranulocytosis secondary to cancer chemotherapy

== ENCOUNTER → 2019-05-26 10:46 | Outpatient (CLI) | payer MEDICARE, OTHER ==
[2018-04-07 10:14] VITALS: BMI 33.0
== END | disposition home or self-care (01) ==
LOC: D.HCCECHO 10:46
PROVIDERS: ATTEND Internal Medicine Cardiovascular Disease
DX: I25.10 Atherosclerotic heart disease of native coronary artery without angina pectoris (principal)

== ENCOUNTER 2019-06-03 11:20 | Outpatient (CLI) | payer MEDICARE, OTHER ==
[~2019-06-03] VITALS: Ht 160 cm; Wt 70.9 kg
--- NOTE | ~2019-06-03 | HEMODYNAMI ---
PATIENT:GRIFFIN BEGUM MEDICAL RECORD: [id number] : 30 LOCATION:[facility] ADMISSION DATE: 06/03/19 Generatedon:06/04/20199:22 Patient name: GRIFFIN BEGUM Patient #: [id number] SSN : [id number] : 1930 Date of study: 06/03/2019 Page: Of Hemodynamic Procedure Report Patient Data Patient Demographics Procedure consent was obtained First Name: GRIFFIN Gender: Female Last Name: SHY : 1930 [facility] Initial: P Age: 89 year(s) Patient #: [id number] Race: SSN: [id number] Additional ID: [id number] Contact details Address: [address] [place] [address] State: [place] City: [facility] Zip code: [address] Past Medical History Performed procedures and imaging results Date Procedure Procedure Results Comments Stress testing with Positive->High SPECT MPI risk Allergies: No known allergies Admission Admission Data Admission Date: 06/03/2019 Admission Time: 11: Arrival Date: 06/03/2019 Arrival Time: 0:00 Height (in.): 160 BSA: 2.45 (m2) Height (cm.): 406.4 BMI: 1.95 (kg/m2) Weight (lbs.): 71 Weight (kg.): 32.21 Lab Results Lab Result Date: 06/03/2019 Lab Result Time: 0:00 Biochemistry Name Units Result Min Max BUN mg/dl 19 --(----)*- 7 18 Creatinine mg/dl 0.8 --(-*--)-- 0.6 1.3 eGFR ml/min 72 *-(----)-- 90 120 NONAFRICAN CBC Name Units Result Min Max Hematocrit % 37.6 *-(----)-- 42 54 Hemoglobin g/dl 11.7 *-(----)-- 13.5 17.5 Procedure Procedure Types Cath Procedure Diagnostic Procedure [facility] w/Coronaries w/Grafts Sedation Charges Moderate Sedation up to 45 minutes PCI Procedure Coronary Stent Coronary Stent Initial PTCA PTCA Additional Hemochron ACT Test Procedure Description Procedure Date Procedure Date: 06/03/2019 Procedure Start Time: 13:39 Procedure End Time: 14:27 Procedure Staff Name Function Isaiah Boyd MD Performing Physician Shaista Das RT Scrub Marty Leavitt RN Nurse Herbert Manley RT Monitor Procedure Data Cath Procedure Fluoroscopy Diagnostic fluoroscopy Total fluoroscopy Time: time: 17.1 min 17.1 min Diagnostic fluoroscopy Total fluoroscopy dose: dose: 1287 mGy 1287 mGy Contrast Material Contrast Material Type Amount (ml) Isovue 300 205 Entry Location Entry Primary Successful Side Size Upsize Upsize Entry Closure Succes sful Closure Location (Fr) 1 (Fr) 2 (Fr) Remarks Device Remarks Femoral Right 5 Fr 6 Fr Exoseal artery Long Estimated blood loss: 10 ml Diagnostic catheters Device Type Used For End Catheter Placement MULTIPACK JL 4.0 5Fr Procedure catheter MULTIPACK 3DRC 5Fr Procedure catheter DIAGNOSTIC MPA-2 5Fr catheter ([id number]) MULTIPACK Pigtail 5 Fr Procedure catheter Procedure Complications No complications Procedure Medications Medication Administration Route Dosage 0.9% NaCl I.V. 100 ml/hr Oxygen etCO2 Nasal cannula 2 l/min Heparin Flush Bag added to field 2 bags (1000units/500ml NS) Lidocaine 2% added to field 20 Versed I.V. 1 mg Fentanyl I.V. 50 mcg Versed I.V. 1 mg Fentanyl I.V. 50 mcg Heparin Bolus I.V. 5000 units Fentanyl I.V. 50 mcg Hemodynamics Rest BSA: 2.45 (m2) HGB: 11.7 (g/dl) O2 Consumption: Estimated: 221.06 (ml/min) O2 Co nsumption indexed: Estimated:90.23 (ml/min/m) Heart Rate: 76 (bpm) Pressure Samples Time Site Value (mmHg) Purpose Heart Use Rate(bpm) 13:51 LV 160/7,14 Snapshot 70 13:51 LV 148/5,15 Pullback 69 13:51 AO 144/69(101) Pullback 69 Gradients Valve Time Site 1 Site 2 Mean SEP/DFP Peak To Heart Use (mmHg) (sec/min) Peak Rate (mmHg) (bpm) Aortic 13:51 LV AO 6 22 4 69 148/5,15 144/69(101) Calculations Valve P-P Mean Valve Index Valve Source Name Gradient Area Flow (cm2) Aortic 4 6 4 6 Snapshots Pre Cath Intra NCS Post Cath Vital Signs Time Heart Resp SPO2 etCO2 NIBP (mmHg) Rhythm Pain Sedation Rate (ipm) (%) (mmHg) Status Level (bpm) 13:19:29 73 16 92 0 185/96(118) NSR 0 (11) 10(A) , No pain 13:23:49 69 26 97 41.9 158/84(124) NSR 0 (11) 10(A) , No pain 13:28:03 65 18 99 42.6 138/80(122) NSR 0 (11) 10(A) , No pain 13:32:19 67 18 98 41.1 134/76(112) NSR 0 (11) 10(A) , No pain 13:36:33 65 16 98 41.1 130/73(109) NSR 0 (11) 10(A) , No pain 13:40:47 68 23 98 30.5 138/76(111) NSR 0 (11) 10(A) , No pain 13:45:05 70 17 98 38.8 132/72(111) NSR 0 (11) 9(A) , No pain 13:49:22 68 17 98 36.5 138/73(117) NSR 0 (11) 9(A) , No pain 13:53:40 69 20 98 37.3 139/73(114) NSR 0 (11) 9(A) , No pain 13:57:55 66 16 98 41.1 133/70(107) NSR 0 (11) 9(A) , No pain 14:02:08 65 29 96 41.9 119/64(96) NSR 0 (11) 10(A) , No pain 14:06:19 66 24 96 17.5 122/67(102) NSR 0 (11) 10(A) , No pain 14:10:29 67 20 96 41.1 139/76(123) NSR 0 (11) 10(A) , No pain 14:14:45 66 25 96 41.8 145/70(109) NSR 0 (11) 10(A) , No pain 14:19:07 64 16 97 41.8 136/69(113) NSR 0 (11) 10(A) , No pain 14:23:21 66 27 97 39.6 149/80(115) NSR 0 (11) 10(A) , No pain 14:27:39 64 13 97 44.9 142/81(123) NSR 0 (11) 10(A) , No pain Medications Time Medication Route Dose Verified Delivered Reason Notes Effectiveness by by 13:22:48 0.9% NaCl I.V. 100 Marty Marty Per physician ml/hr Dagmar Leavitt RN RN 13:22:58 Oxygen etCO2 2 Marty Marty for low 02 sats Nasal l/min Dagmar Leavitt cannula RN RN 13:23:09 Heparin Flush added 2 Marty Marty used for Bag to bags Dagmar Leavitt procedure (1000units/500ml RN RN NS) 13:23:20 Lidocaine 2% added 20ml Marty Marty for local to vial Dagmar Leavitt anesthetic RN RN 13:40:40 Versed I.V. 1 mg Marty Marty for sedation Dagmar Leavitt RN RN 13:40:48 Fentanyl I.V. 50 Marty Marty for sedation mcg Dagmar Leavitt RN RN 13:43:14 Versed I.V. 1 mg Marty Marty for sedation Dagmar Leavitt RN RN 13:43:18 Fentanyl I.V. 50 Marty Marty for sedation mcg Dagmar Leavitt RN RN 13:59:13 Heparin Bolus I.V. 5000 Marty Marty for units Dagmar Leavitt anticoagulation RN RN 14:26:26 Fentanyl I.V. 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 12:32:03 Time tracking: Regular hours (M-F 7:00 - 5:00) 12:32:07 Plan of Care:Hemodynamics will remain stable., Cardiac rhythm will remain stable., Comfort level will be maintained., Respiratory function will remain adequate., Patient/ family verbilizes understanding of procedure., Procedure tolerated without complication., Recovers from procedure without complications.. 12:32:20 H&P Date Dictated: 05/16/2019 Within 30 days and on chart., H&P Addendum completed by physician on day of procedure. (MUST COMPLETE FOR ALL OUTPATIENTS). 12:32:32 Patient allergic to No known allergies 12:33:52 Patient Weight : 71 lbs 12:33:56 Patient Height : 160 inches 12:33:58 Arrival Date: 06/03/2019 12:00:00 AM 12:34:37 Lab Result : Hemoglobin 11.7 g/dl 12:34:37 Lab Result : Hematocrit 37.6 % 12:34:37 Lab Result : eGFR NONAFRICAN 72 ml/min 12:34:37 Lab Result : BUN 19 mg/dl 12:34:37 Lab Result : Creatinine 0.8 mg/dl 12:38:21 Stress Test: yes; abnormal APICAL 12:47:47 Risk of Mortality: .4 12:47:50 Risk of blood transfusion: 2.3 12:47:53 Risk of PRECIOUS: 2.9 12:59:56 Shaista CHANDRA(R) (CV) sent for patient. Start room use. 13:10:25 Patient received from Pre/Post Procedure Room to CCL 1 Alert and oriented. Tansferred to table in Supine position. 13:10:27 ECG and BP/O2 sat monitors applied to patient. 13:10:27 Correct patient and procedure confirmed by team. 13:10:27 Warm blankets applied, and wally hugger turned on for patient comfort. 13:18:17 Vital chart was started 13:18:19 Baseline sample Acquired. 13:18:23 Rhythm: sinus rhythm 13:18:24 Full Disclosure recording started 13:18:25 Pre-op teaching completed and patient verbalized understanding. 13:18:25 Pre-procedure instructions explained to patient. 13:18:26 Family in patients room. 13:18:27 Patient NPO since Midnight. 13:18:30 Is patient on blood thinner?Yes 13:18:30 Is the patient allergic to Iodine/contrast media? No. 13:18:33 ACC The patient was administered the following blood thiners within the last 24 hours: ACCPlavix 13:18:35 Patient diabetic? No. 13:18:38 Previous problem with sedation/anesthesia? No ? 13:18:39 Snore? Yes 13:18:41 Sleep apnea? No 13:18:42 Opens mouth fully? Yes 13:18:42 Deviated septum? No 13:18:43 Sticks out tongue? Yes 13:18:45 Airway obstruction? No ? 13:18:49 Dentures? Yes IN TIGHT 13:20:41 Pre procedure: right dorsailis pedis pulse 1+ Palpable, but thready & weak; easily obliterated 13:20:46 Patient pain scale 1/10 ?. 13:20:53 IV patent on arrival in left forearm with 0.9% NaCl at [facility]. 13:20:56 Lab results completed and on chart. 13:21:25 Right groin area was prepped with chlora-prep and draped in sterile fashion 13:21:26 Sharps counted by scrub and verified by R.N. 13:21:26 Alarms reviewed by R. N. 13:22:48 0.9% NaCl 100 ml/hr I.V. was administered by Marty Leavitt RN; Per physician; Verbal order read back and verified. 13:22:58 Oxygen 2 l/min etCO2 Nasal cannula was administered by Marty Leavitt RN; for low 02 sats; Verbal order read back and verified. 13:23:09 Heparin Flush Bag (1000units/500ml NS) 2 bags added to field was administered by Marty Leavitt RN; used for procedure; Verbal order read back and verified. 13:23:20 Lidocaine 2% 20ml vial added to field was administered by Marty Leavitt RN; for local anesthetic; Verbal order read back and verified. 13:27:40 Use device set Femoral Dx 13:27:41 ACIST Syringe (52836) opened to sterile field. 13:27:42 Bag Decanter (2002S) opened to sterile field. 13:27:43 ACIST Hand Control (31622) opened to sterile field. 13:27:44 Tegaderm 4 x 4 (1626W) opened to sterile field. 13:27:44 ACIST Manifold (46793) opened to sterile field. 13:27:45 Medline Cath Pack ([id number]) opened to sterile field. 13:27:46 DIAGNOSTIC Multipack 5Fr catheter set (NP4925) opened to sterile field. 13:27:47 SHEATH 5FR [place] (AMF447) opened to sterile field. 13:27:48 EMERALD Guide Wire (209-585) opened to sterile field. 13:28:07 Zero performed for pressure channel P1 13:28:13 Zero performed for pressure channel P1 13:34:35 Final Timeout: patient, procedure, and site verified with staff and physician. All members of the team are in agreement. 13:34:35 --------ALL STOP TIME OUT------ 13:34:37 Right groin site verified by team. 13:34:40 Fire Safety Assessment: A--An alcohol-based skin anteseptic being used preoperatively., C--Open oxygen or nitrous oxide is being used., D--An ESU, laser, or fiber-optic light is being used. 13:34:44 Physical assessment completed. ASA score P 2 - A patient with mild systemic disease as per Isaiah Boyd MD. 13:34:48 2) 60-89 Mildly reduced kidney function, and other findings (as for stage 1) point to kidney disease. 13:34:50 Maximum allowable contrast dose (3.7 X eGFR X 0.75)200. ml. 13:34:54 Sedation plan: IV Moderate Sedation Medication:Versed, Fentanyl 13:35:08 Zero performed for pressure channel P1 13:39:32 Procedure started. 13:39:43 Local anesthetic to right femoral artery with Lidocaine 2% by Isaiah Boyd MD.INITIAL ACCESS ONLY 13:40:38 A 5 Fr sheath was inserted into the Right Femoral artery 13:40:40 Versed 1 mg I.V. was administered by Marty Leavitt RN; for sedation; Verbal order read back and verified. 13:40:48 Fentanyl 50 mcg I.V. was administered by Marty Leavitt RN; for sedation; Verbal order read back and verified. 13:41:11 A MULTIPACK JL 4.0 5Fr catheter was advanced over the wire and used for Procedure. 13:42:22 LCA angiography performed. 13:42:23 Catheter removed. 13:42:40 A MULTIPACK 3DRC 5Fr catheter was advanced over the wire and used for Procedure. 13:43:14 Versed 1 mg I.V. was administered by Marty Leavitt RN; for sedation; Verbal order read back and verified. 13:43:18 Fentanyl 50 mcg I.V. was administered by Marty Leavitt RN; for sedation; Verbal order read back and verified. 13:44:45 RCA angiography performed. 13:44:50 SVG to LAD angiography performed. 13:46:02 Catheter exchanged over wire. 13:47:21 A DIAGNOSTIC MPA-2 5Fr catheter ([id number]) was advanced over the wire and used for . 13:49:42 SVG to RCA angiography performed. 13:50:00 Catheter exchanged over wire. 13:51:08 A MULTIPACK Pigtail 5 Fr catheter was advanced over the wire and used for Procedure. 13:51:21 LV gram done using STOKES 13:51:25 Injector settings: Ml/sec: 10, Volume: 20, 13:51:31 LV hemodynamics recorded. 13:51:45 EF : 55 % 13:51:47 Catheter exchanged over wire. 13:52:30 WHISPER 300cm guide wire ([id number]) opened to sterile field. 13:52:30 SHEATH 6FR [place] (FAA679) opened to sterile field. 13:52:31 INFLATOR Merit BasixCompak (CZ6401) opened to sterile field. 13:52:43 SHEATH 6FR ARROW 45cm (CL-07052) opened to sterile field. 13:53:22 Sheath upsized to a 6 Fr Long. 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 13:54:11 GUIDE 6FR XBLAD 3.5 catheter ([id number]) opened to sterile field. 13:57:13 Pre PCI Site: [place] OM1 has 80% stenosis. 13:59:13 Heparin Bolus 5000 units I.V. was administered by Marty Leavitt RN; for anticoagulation; Verbal order read back and verified. 14:00:49 WHISPER 300 wire advanced. 14:00:55 Wire advanced across lesion. 14:01:34 The INTEGRITY OTW 3.0 X 15 stent ([id number]) was advanced then removed because of failure to cross lesion 14:04:03 Inflate balloon Inflation number: 1 A EUPHORA 2.5 x 15 Balloon ([id number]) was prepped and advanced across the 1st Ob Brittney , then inflated to 6 KIMBERLY for 0:00 (min:sec) . 14:04:43 Inflation number: 2 The EUPHORA 2.5 x 15 Balloon ([id number]) was reinflated across the 1st Ob Brittney , to 8 KIMBERLY for 0:00 (min:sec) . 14:04:54 Balloon removed over the wire. 14:09:48 Place stent Inflation Number: 3 A INTEGRITY OTW 3.0 X 15 stent ([id number]) was prepped and advanced across the 1st Ob Brittney . The stent was deployed at 14 KIMBERLY for 0:00 (min:sec) . 14:09:51 Stent catheter was removed intact over wire. 14:14:03 Place stent Inflation Number: 4 A INTEGRITY OTW 3.0 X 9 stent ([id number]) was prepped and advanced across the 1st Ob Brittney . The stent was deployed at 12 KIMBERLY for 0:00 (min:sec) . 14:14:33 Stent catheter was removed intact over wire. 14:14:37 Wire redirected to CIRC. 14:20:56 Inflation number: 5 The stent balloon was then re-inflated across the 1st Ob Brittney to 14 KIMBERLY for 0:00 (min:sec) . 14:20:57 LATE ENTRY 1..2020 @0921 NOTE ABOVE INCORRECT. STENT BALLOON REINFLATED IN THE CIRC. -HERBERT MANLEY RT(R) 14:20:58 Balloon removed over the wire. 14:20:59 Guide catheter removed. 14:20:59 Wire removed. 14:21:05 EXOSEAL 6Fr (EX600) opened to sterile field. 14:21:19 LONG SHEATH EXCHANGED FOR SHORT SHEATH 14:23:16 SHEATH 6FR [place] (CTJ823) opened to sterile field. 14:23:57 Sheath removed intact; hemostasis achieved with Exoseal to the Right Femoral artery. 14:24:00 Procedure ended.(Physican Out) 14:24:57 Fluoroscopy dose: 1287 mGy 14:24:57 Flurop Dose total: 1287 14:25:01 Fluoroscopy time 17.10 minutes. 14:25:17 Dose Area Product 89447 mGy/cm. 14:25:20 Contrast amount:Isovue 300 205ml. 14:25:24 Maximum allowable dose exceeded? Yes. 14:25:26 Sharps counted by scrub and verified by R.N. 14:25:28 Post-op/insertion site Right Femoral artery dressed using a 4 x 4 and Tegaderm. 14:25:31 Post-procedure physical assessment completed. ASA score P 2 - A patient with mild systemic disease as per Isaiah Boyd MD. 14:25:41 Post procedure rhythm: sinus rhythm 14::44 Estimated blood loss: 10 ml 14::45 Post procedure instruction explained to patient.Patient verbalizes understanding. 14:25:46 Patient needs reinforcement of post procedure teaching. 14:26:26 Fentanyl 50 mcg I.V. was administered by Marty Leavitt RN; for sedation; Verbal order read back and verified. 14:27:01 Procedure type changed to Cath procedure, Diagnostic procedure, LHC, LHC w/Coronaries w/Grafts, Sedation Charges, Moderate Sedation up to 45 minutes, PCI procedure, Coronary Stent, Coronary Stent Initial, PTCA, PTCA Additional, Hemochron ACT Test 14:27:32 Procedure and supply charges have been captured, reviewed, submitted and are correct. 14:27:35 Procedure Complication : No complications 14:27:37 Vital chart was stopped 14:27:[address] [facility] Findings: MVD- PCI performed (see procedure note) 14:27:40 See physician's report for complete and final results. 14:27:40 Operative report dictated upon procedure completion. 14:27:50 Report given to Pre/Post Procedure Room. 14:27:53 Patient transfered to Pre/Post Procedure Room with Bed. 14:27:56 Full Disclosure recording stopped 14:27:56 Procedure ended. 14:28:04 ACT drawn and resulted at 226 seconds. (normal therapeutic range 180-240 seconds). 14:28:13 ACC-PCI Only Patient was given prescriptions, or instructed by Isaiah Boyd MD to start/continue the following medications upon discharge: Plavix 14:28:15 End room use (Document Last) 14:30:48 End room use (Document Last) 14:31:04 End room use (Document Last) Intervention Summary Intervention Notes Time ActionType Lesion and Equipment Action# Pressure Duration Attributes Used 14:01:34 Discard INTEGRITY Stent OTW 3.0 X 15 stent ([id number]) 14:04:03 Inflate 1st Ob Brittney EUPHORA 2.5 1 6 00:00 balloon x 15 Balloon ([id number]) 14:04:43 Reinflate 1st Ob Brittney EUPHORA 2.5 2 8 00:00 balloon x 15 Balloon ([id number]) 14:09:48 Place stent 1st Ob Brittney INTEGRITY 3 14 00:00 OTW 3.0 X 15 stent ([id number]) 14:14:03 Place stent 1st Ob Brittney INTEGRITY 4 12 00:00 OTW 3.0 X 9 stent ([id number]) 14:20:56 Reinflate 1st Ob Brittney INTEGRITY 5 14 00:00 stent OTW 3.0 X 9 balloon stent ([id number]) Device Usage Item Name Manufacture Quantity Catalog Hospital Part Current Minimal L ot# / Number Charge Number Stock Stock Serial# Code ACIST Acist 1 51697 026585 301924 299183 20 Syringe Medical (89878) Systems Inc Bag Microtek 1 2001S 813381 04968 585010 5 Decanter Medical Inc. () ACIST Hand Acist 1 04528 225378 973003 938315 5 Control Medical (46709) Systems Inc ACIST Acist 1 17014 047253 307166 103459 5 Manifold Medical (98167) Systems Inc Tegaderm 4 3M 1 1626W 511396 322393 592044 5 x 4 (1626W) Medline Medline 1 [id number] 027493 15676 563523 5 Cath Pack ([id number]) DIAGNOSTIC Cardinal 1 DM6193 873040 53977 469639 30 Multipack Health 5Fr catheter set (YN2167) SHEATH 5FR Terumo 1 TAX453 687710 358885 846925 5 [place]ine (NDA077) EMERALD Cardinal 1 502-455 208802 315441 277029 5 Guide Wire Health (502-455) MULTIPACK Cardinal 1 475837 5 JL 4.0 5Fr Health catheter MULTIPACK Cardinal 1 521417 5 3DRC 5Fr Health catheter DIAGNOSTIC Cardinal 1 [id number] 472260 072235 056189 5 MPA-2 5Fr Health catheter (033061N) MULTIPACK Cardinal 1 531251 5 Pigtail 5 Health Fr catheter SHEATH 6FR Terumo 2 TPP510 932222 765913 317747 40 [place] (NRC959) WHISPER [place] 1 [id number] 870908 204762 677152 5 300cm guide Vascular wire ([id number]) INFLATOR [facility] 1 TY6824 807389 782000 352305 15 [facility] [employer] BasixCompak (LU0248) SHEATH 6FR Teleflex 1 CL-33431 721793 653495 730565 5 ARROW 45cm (CL-14558) GUIDE 6FR Cardinal 1 [id number] 510917 862594 261631 10 XBLAD 3.5 Health catheter ([id number]) INTEGRITY Medtronic 1 [id number] 893185 509919 438201 1 0 [id number] OTW 3.0 X 15 stent ([id number]) EUPHORA 2.5 Medtronic 1 [id number] 253051 931735 276934 5 2 [id number] x 15 Balloon ([id number]) INTEGRITY Medtronic 1 [id number] 212826 914107 132397 1 0 [id number] OTW 3.0 X 9 stent ([id number]) EXOSEAL 6Fr Cardinal 1 EX600 657216 636898 075734 10 (EX600) [facility] Signature Audit [place] Stage Time Signature Unsigned Intra-Procedure 06/03/2019 Herbert Manley 2:30:48 PM RT(R) Intra-Procedure 06/03/2019 Marty 2:31:04 PM Dagmar PATRICIO Intra-Procedure 06/03/2019 Isaiah Boyd MD 2:33:35 PM Armen HAAS 06/04/2019 9:19:27 AM Intra-Procedure 06/04/2019 Isaiah Mcgrath 9:22:52 AM Armen HAAS Signatures Performing Physician : Signature : Isaiah Boyd MD Date : Time : Nurse : Marty Leavitt Signature : RN Date : Time : Monitor : Herbert Manley Signature : RT Date : Time : [facility] [address] [place] [address]
[2019-06-03] MEDS ORDERED: FEMARA2.5 MG PO (11:48)
[2019-06-03] MEDS ORDERED: LOPRESSOR25 MG PO (11:50)
[2019-06-03 12:12] VITALS: BP 131/66; Ht 160 cm; Wt 70.9 kg
[2019-06-03 12:13] LABS: BASOPHILS 0.1 % (0-2); EOSINOPHILS 1.8 % (0-7); HEMATOCRIT 37.6 % (36.0-48.0); HEMOGLOBIN 11.7 g/dL (12-16); IMMATURE GRANULOCYTES 0.3 % (0-5); LYMPHOCYTES 15.5 % (15-50); MCHC 31.1 g/dL (31.0-37.0); MCV 86.6 fL (80.0-100.0); MEAN PLATELET VOLUME 10.4 fL (7.4-10.4); MONOCYTES 5.5 % (2-11); NEUTROPHILS 76.8 % (40-80); PLATELET COUNT 159 10x3/uL (130-400); RBC 4.34 10x6/uL (4.00-5.40); RDW 13.7 % (11.5-14.5)
[2019-06-03 12:22] LABS: ANION GAP 7.9 mmol/L (8-16); CALCIUM 8.3 mg/dL (8.5-10.1); CARBON DIOXIDE 31.1 mmol/L (21.0-32.0); CREATININE - SERUM 0.8 mg/dL (0.6-1.3)
--- NOTE | 2019-06-03 14:45 | NUR ---
PATIENT ARRIVED TO ROOM 3, PLACED ON CM. VSS. RIGHT GROIN DRESSING IS CDI, NO S/S OF BLEEDING OR HEMATOMA. WILL CONTINUE TO MONITOR.
--- NOTE | 2019-06-03 15:00 | NUR ---
PATIENT RESTING, VSS ON ROOM AIR. RIGHT GROIN DRESSING IS CDI, NO S/S OF BLEEDING OR HEMATOMA. SPOKE WITH SON ON PHONE REGARDING PATIENT DISCHARGE TIME PER PATIENT REQUEST.
--- NOTE | 2019-06-03 15:30 | NUR ---
PATIENT VOIDED VIA BEDPAN WITHOUT DIFFICULTY. VSS ON ROOM AIR. RIGHT GROIN DRESSING IS CDI, NO S/S OF BLEEDING OR HEMATOMA. NO C/O PAIN, NUMBNESS, OR TINGLING. NO N/V.
--- NOTE | 2019-06-03 15:59 | NUR ---
PATIENT RESTING, VSS ON ROOM AIR. RIGHT GROIN DRESSING IS CDI, NO S/S OF BLEEDING OR HEMATOMA. 2+ PEDAL PULSES. NO N/V. NO C/O PAIN, NUMBNESS, OR TINGLING.
--- NOTE | 2019-06-03 16:30 | NUR ---
PATIENT ASSISTED WITH BEDPAN, VOIDED WITHOUT DIFFICULTY. PATIENT TOLERATING PO FLUDS, NO N/V. VSS ON ROOM AIR. RIGHT GROIN DRESSING IS CDI, NO S/S OF BLEEDING OR HEMATOMA. NO C/O PAIN, NUMBNESS, OR TINGLING.
--- NOTE | 2019-06-03 17:00 | NUR ---
PATIENT RESTING, VSS ON ROOM AIR. RIGHT GROIN DRESSING IS CDI, NO S/S OF BLEEDING OR HEMATOMA. NO C/O PAIN, NUMBNESS, OR TINGLING. TOLERATING PO FLUIDS, NO N/V.
--- NOTE | 2019-06-03 17:30 | NUR ---
HEAD OF BED ELEVATED TO 90 DEGREES. RIGHT GROIN DRESSING IS CDI, NO S/S OF BLEEDING OR HEMATOMA. NO C/O PAIN, NUMBNESS, OR TINGLING. PATIENT GIVEN SANDWICH AND DIET SODA PER REQUEST, NO N/V.
--- NOTE | 2019-06-03 17:50 | NUR ---
WRITTEN AND VERBAL DISCHARGE INSTRUCTIONS AND MEDICATION COMPLIANCE GONE OVER WITH PATIENT, PATIENT VOICES UNDERSTANDING. VSS ON ROOM AIR. RIGHT GROIN DRESSING IS CDI, NO S/S OF BLEEDING OR HEMATOMA. NO C/O PAIN, NUMBNESS, OR TINGLING. PIV REMOVED WITH CATHLON INTACT. PATIENT DISCONNECTED FROM MONITORS TO GET DRESSED.
--- NOTE | 2019-06-03 18:10 | NUR ---
PATIENT TRANSPORTED VIA WHEELCHAIR TO CAR WITH SON DRIVING, ALL BELONGINGS WITH PATIENT.
--- NOTE | 2019-06-05 14:13 | OP ---
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 CATHETERS: A 5-Chinese sheath, 5/4 left and right Juanis, 5/4 pig. The procedure was well tolerated. The patient returned to the ma, sheath removed. FINDINGS: Left ventriculography at 30-degree STOKES view: Normal wall motion and normal LV systolic function. CORONARY ANATOMY: LEFT MAIN: Left main is free of disease. LAD: Totally occluded proximally. CIRCUMFLEX: Gives rise to one OM, which has ostial stenosis of 80% and distal stenosis of 80% more diffuse. RIGHT CORONARY ARTERY: Totally occluded. Saphenous vein graft to the LAD is widely patent. The distal LAD itself is somewhat diffusely diseased, not amenable to intervention. Saphenous vein graft to right coronary is widely patent with no evidence of post-anastomotic stenosis. PLAN: Intervention to the circumflex-OM momentarily. DESCRIPTION: A 5-Chinese sheath was exchanged for a long 6-Chinese sheath. An XB LAD guide catheter provided good guide catheter support followed by 300 cm Whisper wire. Pre-deployment balloon was 2.5 Euphora inflated approximately up to 8-10 atmospheres. Stents deployed in the following fashion 3.0 x 15 mm Integrity stent was placed distally, more proximally at the ostium 3.0 x 9 mm Integrity, was inflated up to 14 atmospheres. There was snow plowed into the distal circumflex itself and using the stent balloon we inflated to up to 8 atmospheres, this showed excellent resolution of 80% snow-plow with 0% residual. IMPRESSION: Successful FOLDER STITCHER OPERATOR and stenting of the OM with PTCA of the snow plowed circumflex. ESTIMATED BLOOD LOSS: Minimal. COMPLICATIONS: None. DISPOSITION: To the floor, stable. TRANSINT:[id number] Voice Confirmation ID: [id number] DOCUMENT ID: [id number] OPERATIVE REPORT [id number] GRIFFIN BEGUM GREGORY A MD at 1413 CC: [id number] DICTATION DATE: 06/03/19 1436 DIGITAL DESIGN ENGINEER: 06/03/191928 DEP CLI 06/03/19 [facility] [address] [facility] [place] [address]
== END 2019-06-03 18:10 ==
LOC: D.CATH 11:20
PROVIDERS: ATTEND Internal Medicine Interventional Cardiology
DX: I25.10 Atherosclerotic heart disease of native coronary artery without angina pectoris (principal); E78.5 Hyperlipidemia, unspecified; E03.9 Hypothyroidism, unspecified; I10 Essential (primary) hypertension; K21.9 Gastro-esophageal reflux disease without esophagitis; I26.99 Other pulmonary embolism without acute cor pulmonale; I34.1 Nonrheumatic mitral (valve) prolapse; R01.1 Cardiac murmur, unspecified